=== PATIENT | male | born 1975 | race Caucasian/White ===

== ENCOUNTER 2023-04-08 11:07 | Emergency (ER) | payer OTHER, SELFPAY ==
[2023-04-08 11:15] VITALS: BP 151/92; PULSE 79; RESP 18; TEMP 36.6; O2SAT 99
--- NOTE | 2023-04-08 11:26 | ED.SKABFB ---
HPI - Skin/Abscess/Foreign Bdy General Chief complaint: Skin/Abscess/Foreign Body Stated complaint: Rt Facial Swelling Source: patient Mode of arrival: ambulatory Limitations: no limitations History of Present Illness HPI narrative: 47 y/o male presented for c/o red warm area to right cheek for 4 days. States it started as a small red area, the following day it was a little bigger so he squeezed it thinking it was a pimple. That night the site became more tender and the right cheek had swelling and firmness which persisted for about 2 days. Has taken ibuprofen and benadryl and reports it feels much better today. Denies itching or drainage to the site. Denies lip swelling, trouble breathing, wheezing, n/v/d/f/c. Related Data Allergies Allergy/AdvReac Type Severity Reaction Status Date / Time No Known Allergies Allergy Verified 04/08/23 11:11 Review of Systems Review of Systems: CONSTITUTIONAL: Denies body aches, fever, chills, or sweats. EYES: Denies visual changes, redness, or discharge. ENT: Denies rhinorrhea, congestion CARDIOVASCULAR: Denies chest pain, palpitations, or edema. RESPIRATORY: Denies cough or dyspnea. GASTROINTESTINAL: Denies abdominal pain, nausea, vomiting, or diarrhea. SKIN: reports right cheek red firm warm site MUSCULOSKELETAL: Denies back pain, joint pain, or myalgia. NEUROLOGIC: Denies headache, numbness, tingling, or weakness. [facility] Past Medical History Medical History (Updated 04/08/23 @ 11:42 by Maria E Cortez, PMA) No pertinent past medical history Comments At time of signature, I have reviewed and agree with nursing past medical, surgical, social and family history unless otherwise noted. Please see nursing chart for further information. There is no relevant family history pertinent to the presenting complaint Exam Narrative: GENERAL: Well-appearing HEAD: Normocephalic, atraumatic. EYES: conjunctivae clear, and EOMI. ENT: Mucous membranes moist. Oropharynx without edema, erythema or lesions. NECK: Supple. No lymphadenopathy CHEST: Clear to auscultation. HEART: Regular rate and rhythm. SKIN: Warm, dry. Right cheek just lateral to the nasolabial fold with approx [id number] diameter localized indurated abscess, center with scant serous crust, site is firm, warm, red and tender, no fluctuance or active drainage. Oral mucosa appears normal, no open areas. NEURO: Alert and oriented x3. HENMT: Face images: 1. site of abscess Course Course Emergency Course: Patient is aware of diagnosis, understands and agrees to treatment plan. Anticipatory guidance given. Patient agrees to follow-up as directed and is aware of reasons to seek care at the emergency department. Portions of this record may have been created with voice recognition software Level of Care: Express Care Visit Vital Signs Vital signs: Vital Signs Temperature 97.8 F 04/08/23 11:15 Pulse Rate 79 04/08/23 11:15 Respiratory Rate 18 04/08/23 11:15 Blood Pressure 151/92 H 04/08/23 11:15 Pulse Oximetry 99 04/08/23 11:15 Oxygen Delivery Room Air 04/08/23 11:15 Temperature 97.8 F 04/08/23 11:15 Pulse Rate 79 04/08/23 11:15 Respiratory Rate 18 04/08/23 11:15 Blood Pressure 151/92 H 04/08/23 11:15 Pulse Oximetry 99 04/08/23 11:15 Oxygen Delivery Room Air 04/08/23 11:15 Reviewed MDM - Skin/Abscess/Foreign Bdy MDM Narrative Medical decision making narrative: Discussed physical exam findings, abscess site is not appropriate for I&D at this time. Will send Rx abx. Advised close monitoring, supportive measures and signs/symptoms to go to the ER. Discussed danger triangle. Pt is appropriate for outpt treatment and f/u. Differential Diagnosis Differential diagnosis: Likely abscess of skin or subcutaneous tissue, urticaria, herpes zoster, cellulitis and contact dermatitis Discharge Plan Discharge Clinical Impression: Abscess of skin or subcutaneous tissue Qu
== END 2023-04-08 11:33 | disposition home or self-care (01) ==
PROVIDERS: Emergency Provider Nurse Practitioner Family
DX: L02.01 Cutaneous abscess of face (principal)
CPT/HCPCS: 99213; G0463